=== PATIENT | female | born 1945 | race African-American/Black ===

== ENCOUNTER 2020-05-07 23:21 | Emergency (ER) | payer OTHER, MEDICAID ==
[~2020-05-07] VITALS: Ht 162.6 cm; Wt 74.0 kg
[2020-05-08 00:58] LABS: CHLORIDE 102 mEq/L (98-107)
[2020-05-08 01:03] LABS: ETHANOL BLOOD < 10 mg/dL
[2020-05-08 01:11] LABS: *BENZODIAZEPINES SCREEN URINE NEGATIVE (NEGATIVE); *COCAINE SCREEN URINE NEGATIVE (NEGATIVE)
[2020-05-08 01:12] LABS: *AMPHETAMINES SCREEN URINE NEGATIVE (NEGATIVE); *BARBITURATES SCREEN URINE NEGATIVE (NEGATIVE); CANNABINOID URINE SCREEN NEGATIVE (NEGATIVE); METHADONE URINE SCREEN NEGATIVE (NEGATIVE); OPIATES URINE SCREEN NEGATIVE (NEGATIVE); PHENCYCLIDINE URINE SCREEN NEGATIVE (NEGATIVE)
[2020-05-08 01:25] LABS: BASOPHILS % 0.5 % (0.0-2.0); EOSINOPHILS % 2.8 % (0.0-5.0); HEMATOCRIT. 33.9 % (36.0-48.0); HEMOGLOBIN. 11.5 g/dL (12.0-16.0); LYMPHOCYTES % 44.7 % (20.0-50.0); MEAN CORPUSCULAR HEMOGLOBIN 32.5 pg (28.0-32.0); MEAN CORPUSCULAR VOLUME 95.8 fL (81.0-99.0); MEAN PLATELET VOLUME 9.7 fl (7.4-10.4); MONOCYTES % 9.9 % (2.0-8.0); NEUTROPHILS % 42.1 % (40.0-76.0); PLATELET 249 x1000/uL (130-400); RED BLOOD CELL COUNT 3.54 mill/uL (4.2-5.4)
[2020-05-08 06:52] VITALS: BP 123/61
== END 2020-05-08 06:55 | disposition home or self-care (01) ==
LOC: ER 23:30
DX: R41.82 Altered mental status, unspecified (principal); E78.00 Pure hypercholesterolemia, unspecified; I10 Essential (primary) hypertension
CPT/HCPCS: 36415; 71045; 80053; 80305; 80307; 80320; 80329; 83880; 84484; 85025; 93005; 99285; G0480

== ENCOUNTER 2020-12-11 01:13 | Emergency (ER) | payer OTHER, MEDICAID ==
[~2020-12-11] VITALS: Ht 165.1 cm; Wt 100.0 kg
[2020-12-11 02:04] LABS: BASOPHILS % 0.5 % (0.0-2.0); EOSINOPHILS % 1.2 % (0.0-5.0); HEMATOCRIT. 31.2 % (36.0-48.0); HEMOGLOBIN. 10.6 g/dL (12.0-16.0); LYMPHOCYTES % 17.3 % (20.0-50.0); MEAN CORPUSCULAR HEMOGLOBIN 32.3 pg (28.0-32.0); MEAN CORPUSCULAR VOLUME 95.4 fL (81.0-99.0); MONOCYTES % 7.6 % (2.0-8.0); NEUTROPHILS % 73.4 % (40.0-76.0); PLATELET 176 x1000/uL (130-400); RED BLOOD CELL COUNT 3.27 mill/uL (4.2-5.4); RED CELL DISTRIBUTION WIDTH 15.3 % (11.6-14.6)
[2020-12-11 02:10] LABS: CHLORIDE 107 mEq/L (98-107)
[2020-12-11 02:14] LABS: ETHANOL BLOOD < 10 mg/dL
[2020-12-11 02:53] LABS: *AMPHETAMINES SCREEN URINE NEGATIVE (NEGATIVE); *BARBITURATES SCREEN URINE NEGATIVE (NEGATIVE); *BENZODIAZEPINES SCREEN URINE NEGATIVE (NEGATIVE); *COCAINE SCREEN URINE NEGATIVE (NEGATIVE)
[2020-12-11 02:54] LABS: CANNABINOID URINE SCREEN NEGATIVE (NEGATIVE); OPIATES URINE SCREEN NEGATIVE (NEGATIVE); PHENCYCLIDINE URINE SCREEN NEGATIVE (NEGATIVE)
[2020-12-11 02:56] LABS: METHADONE URINE SCREEN NEGATIVE (NEGATIVE)
[2020-12-11 05:06] LABS: CLARITY URINE CLEAR (CLEAR); COLOR URINE YELLOW (YELLOW); KETONES URINE NEGATIVE (NEGATIVE); LEUKOCYTE ESTERASE URINE TRACE (NEGATIVE); NITRITE URINE NEGATIVE (NEGATIVE); OCCULT BLOOD URINE NEGATIVE (NEGATIVE); PH URINE 6.5 (4.5-8.0); PROTEIN URINE 3+ (NEGATIVE); SPECIFIC GRAVITY URINE 1.021 (1.005-1.030); UROBILINOGEN URINE 0.2 E.U./dL (0.2-1.0)
[2020-12-11 06:49] VITALS: BP 154/67
== END 2020-12-11 07:01 | disposition short-term general hospital (02) ==
LOC: ER 01:13
DX: R00.1 Bradycardia, unspecified (principal); F11.10 Opioid abuse, uncomplicated; I10 Essential (primary) hypertension; E78.00 Pure hypercholesterolemia, unspecified
CPT/HCPCS: 36415; 71045; 80053; 80305; 80320; 81003; 83880; 84484; 85025; 93005; 99285; G0480

== ENCOUNTER 2025-06-16 05:29 | Emergency (ER) | payer OTHER, MEDICAID ==
[~2025-06-16] VITALS: Ht 167.6 cm; Wt 100.0 kg
[2025-06-16 05:31] VITALS: O2SAT 97
[2025-06-16 06:06] LABS: HEMATOCRIT. 24.1 % (36.0-48.0); HEMOGLOBIN. 8.1 g/dL (12.0-16.0); MEAN PLATELET VOLUME 9.6 fl (7.4-10.4); PLATELET 223 x1000/uL (130-400); RED BLOOD CELL COUNT 2.57 mill/uL (4.2-5.4); RED CELL DISTRIBUTION WIDTH 15.3 % (11.6-14.6)
[2025-06-16 06:22] LABS: UREA NITROGEN BLOOD 34.0 mg/dL (9-23)
[2025-06-16 06:31] LABS: CREATININE 2.2 mg/dL (0.6-1.0)
[2025-06-16] MEDS: SODIUM CHLORIDE 0.9% (SEPSIS BOLUS) IV ONE (06:33)
[2025-06-16 06:35] LABS: BG BASE EXCESS -2.6 mmol/L (-2.0-3.0); BG CARBOXYHEMOGLOBIN 1.1 % (0.5-1.5); BG DEOXYHEMOGLOBIN 6.8 % (0.0-5.0); BG FLOW(L/min) 3.00 L/min; BG FRACTION INSPIRED OXYGEN 32; BG HCO3 ACT 20.8 mmol/L (21.0-28.0); BG METHEMOGLOBIN 0.3 % (0.5-1.5); BG OXYGEN SATURATION 93.1 % (94.0-98.0); BG OXYHEMOGLOBIN 91.8 % (94.0-98.0); BG PCO2 31.6 mmHg (32.0-45.0); BG PH 7.437 (7.350-7.450); BG PO2 64.4 mmHg (83.0-108.0); BG SAMPLE SITE RIGHT RADIAL; BG TOTAL HEMOGLOBIN 10.8 g/dL (12.0-16.0); BG VENT MODE NASAL CANNULA
[2025-06-16] MEDS: PIPERACILLIN/TAZO 3.375G/50ML 50 ML IV ONE (06:35)
[2025-06-16 06:36] LABS: TROPONIN I HIGH SENSITIVITY 43 ng/L (3.0-34)
[2025-06-16] MEDS: VANCOMYCIN 1G PREMIX 200 ML IV ONE (07:03)
[2025-06-16 07:52] LABS: PROTEIN TOTAL 5.9 g/dL (6.0-8.3)
[2025-06-16 07:54] LABS: ASPARTATE AMINOTRANSFERASE 18 IU/L (<34); BILIRUBIN DIRECT 0.2 mg/dL (<=3.0); BILIRUBIN TOTAL 0.6 mg/dL (0.1-1.0)
[2025-06-16 08:34] LABS: INR 1.1
[2025-06-16 10:06] LABS: TROPONIN I HIGH SENSITIVITY 39 ng/L (3.0-34)
[2025-06-16 11:07] VITALS: BP 141/70; PULSE 63; RESP 20; TEMP 37; O2SAT 97
[2025-06-16 12:35] LABS: BAND% 21.0 % (1.0-6.0); LYMPHOCYTES % MANUAL 18.0 % (20.0-60.0); MONOCYTES % MANUAL 19.0 % (2.0-8.0); NEUTROPHILS % MANUAL 42.0 % (45.0-75.0); PLATELET ESTIMATE NORMAL
[2025-06-16 13:51] LABS: INFLUENZA TYPE A Presumptive Negative (Pres. Neg.); INFLUENZA TYPE B Presumptive Negative (Pres. Neg.)
== END 2025-06-16 12:01 | disposition short-term general hospital (02) ==
LOC: ER 05:29 → CANBEDREQ 11:23 → ER 12:01
DX: A41.9 Sepsis, unspecified organism (principal); R09.02 Hypoxemia; F03.90 Unspecified dementia, unspecified severity, without behavioral disturbance, psychotic disturbance, mood disturbance, and anxiety; E78.00 Pure hypercholesterolemia, unspecified; K21.9 Gastro-esophageal reflux disease without esophagitis; I10 Essential (primary) hypertension; R06.02 Shortness of breath; Z88.6 Allergy status to analgesic agent; Z88.8 Allergy status to other drugs, medicaments and biological substances
CPT/HCPCS: 99291; 96365; 71045; 96367; 87426; 80076; 80048; 83880; 83605; 85025; 85610; 87040; 84484; 87804 ×2; 87077; 84145; 82805; 82375; 93005; 36600; 36415; J2543; J3373; J7030; A4606